=== PATIENT | male | born 2000 | race African-American/Black ===

== ENCOUNTER 2023-01-15 18:47 | Emergency (ER) | payer MEDICAID ==
[~2023-01-15] VITALS: Ht 185.4 cm; Wt 118.0 kg
[2023-01-15 19:09] VITALS: O2SAT 98
[2023-01-15] MEDS ORDERED: SODIUM CHLORIDE 0.9% 1,000 ML IV ONE (19:45)
[2023-01-15] MEDS ORDERED: LEVETIRACETAM 500MG PREMIX 100 ML IV ONE ×2 (19:45)
[2023-01-15 20:52] LABS: BASOPHILS % 0.3 % (0.0-2.0); HEMATOCRIT. 49.5 % (42.0-52.0); HEMOGLOBIN. 16.2 g/dL (14.0-18.0); LYMPHOCYTES % 8.1 % (20.0-50.0); MEAN CORPUSCULAR HEMOGLOBIN 29.2 pg (28.0-32.0); MEAN CORPUSCULAR HGB CONC 32.6 g/dL (31.0-37.0); MEAN CORPUSCULAR VOLUME 89.5 fL (80.0-94.0); MEAN PLATELET VOLUME 7.4 fl (7.4-10.4); MONOCYTES % 6.7 % (2.0-8.0); NEUTROPHILS % 84.9 % (40.0-76.0); PLATELET 269 x1000/uL (130-400); RED BLOOD CELL COUNT 5.54 mill/uL (4.7-6.1); RED CELL DISTRIBUTION WIDTH 13.9 % (11.6-14.6); WHITE BLOOD COUNT 11.1 x1000/uL (4.5-11.0)
[2023-01-15 20:59] LABS: CHLORIDE 106 mEq/L (98-107); INDEX HEMOLYSI 1 (1-3); INDEX ICTERIC 1 (1-4); INDEX LIPEMIC 1 (1-3); SODIUM 137 mEq/L (136-145)
[2023-01-15 21:00] VITALS: BP 152/87; PULSE 78; RESP 18; TEMP 98.4
[2023-01-15 21:06] LABS: ALANINE AMINOTRANSFERASE 37 IU/L (13-61); ALBUMIN 4.6 g/dL (3.4-5.0); ASPARTATE AMINOTRANSFERASE 23 IU/L (15-37); BILIRUBIN TOTAL 0.7 mg/dL (0.1-1.0); CALCIUM 8.8 mg/dL (8.5-10.1); CARBON DIOXIDE 24 mEq/L (21-32); CREATININE 0.9 mg/dL (0.6-1.3); GLUCOSE 98 mg/dL (70-105); PROTEIN TOTAL 7.9 g/dL (6.0-8.3); UREA NITROGEN BLOOD 8 mg/dL (7-21)
== END 2023-01-15 21:54 | disposition left against medical advice (07) ==
LOC: ER 18:47
DX: R56.9 Unspecified convulsions (principal)
CPT/HCPCS: 80053; 85025; 36415; 96365; 99284; J1953; J7030; Z7610